=== PATIENT | male | born 1990 | race Caucasian/White ===

== ENCOUNTER 2018-10-03 18:20 | Emergency (ER) | payer OTHER ==
[~2018-10-03] VITALS: Ht 175.3 cm; Wt 68.0 kg
== END 2018-10-03 22:04 | disposition home or self-care (01) ==
LOC: ER 18:20
DX: S62.232A Other displaced fracture of base of first metacarpal bone, left hand, initial encounter for closed fracture (principal); S01.82XA Laceration with foreign body of other part of head, initial encounter; W22.8XXA Striking against or struck by other objects, initial encounter; Y93.18 Activity, surfing, windsurfing and boogie boarding; Y92.832 Beach as the place of occurrence of the external cause; Y99.8 Other external cause status